=== PATIENT | female | born 1960 | race Caucasian/White ===

== ENCOUNTER → 2022-04-04 01:36 | Outpatient (CLI) | payer MEDICAID, SELFPAY ==
--- NOTE | 2022-04-04 | DI.CT_ITS ---
Exam(s) CT CHEST W EXAM: CT CHEST W CLINICAL HISTORY: HEMOPTYSIS R04.2 TECHNIQUE: Imaging Protocol: Axial computed tomography images with coronal and sagittal reformatted images were created and reviewed CONTRAST MATERIAL: Intravenous: Omnipaque 350 Contrast volume:70 ml. COMPARISON: No exams were available for comparison FINDINGS: Tracheobronchial tree: No bronchiectasis or mucous plugging. No endobronchial mass visible. Mediastinum and [place]: No dominant adenopathy or fluid collection. Pulmonary parenchyma: Mild emphysematous changes at the lung apices. No consolidation or dominant me asurable mass. Tiny nodule left upper lobe. Additional tiny nodule left lower lobe. Pleura: No effusion or pneumothorax. Heart: The heart is not dilated. No coronary artery calcifications are seen. Aorta: Mild dilatation of the ascending aorta 3.2 cm. Mild calcification. Upper abdomen: Unremarkable. Lymph nodes: Within normal limits. Bones: Mild degenerative disc changes. Soft tissues: Unremarkable. IMPRESSION: A few incidental tiny nodules are seen. There are mild emphysematous changes at the lung apices. No suspicious abnormality. RADIATION DOSE DELIVERED: 286.89mGy.cm Total DLP DATA REPOSITORY: All CT scans at this facility are submitted to the National Radiology Data Registry (NRDR) Dose Index Registry (DIR) with the [employer] ([employer]). RADIATION OPTIMIZATION: All CT scans at this facility use at least one of these dose optimization te chniques: automated exposure control; mA and/or kV adjustment per patient size (includes targeted exa ms where dose is matched to clinical indication); or iterative reconstruction.
== END ==
PROVIDERS: PCP Family Medicine; Visit Provider Nurse Practitioner Family
DX: R04.2 Hemoptysis (principal); J43.8 Other emphysema; R91.8 Other nonspecific abnormal finding of lung field
CPT/HCPCS: 71260